=== PATIENT | male | born 1985 | race Two or more races ===

== ENCOUNTER 2021-07-31 13:37 | Emergency (ER) | payer MEDICAID ==
[~2021-07-31] VITALS: Ht 175.3 cm; Wt 72.6 kg
[2021-07-31 14:07] VITALS: BP 141/92
[2021-07-31] MEDS ORDERED: CYCLOBENZAPRINE 10 MG TABLET PO ONE (15:00)
[2021-07-31] MEDS ORDERED: IBUPROFEN 400 MG TABLET PO ONE (15:00)
[2021-07-31] MEDS ORDERED: CYCLOBENZAPRINE 10 MG TABLET ONE (15:06)
[2021-07-31] MEDS ORDERED: IBUPROFEN 400 MG TABLET ONE (15:06)
--- NOTE | 2021-07-31 15:15 | NUR ---
urine specimen collected. sent to lab
--- NOTE | 2021-07-31 15:15 | NUR ---
Genny hughes in [facility] - 07/31/21 at 1515 by NANCY nina
[2021-07-31 15:20] LABS: BILIRUBIN,URINE Negative (NEGATIVE); COLOR,URINE YELLOW (YELLOW); LEUKOCYTE ESTERASE ,URINE Trace (NEGATIVE); NITRITE, URINE Negative (NEGATIVE); PH,URINE 6.5 (5.0-8.0); PROTEIN,URINE Negative (NEGATIVE); UGLUCOSE Negative (NEGATIVE); UROBILINOGEN,URINE 0.2 EU/dL (0.2)
[2021-07-31] MEDS ORDERED: CEFTRIAXONE 500 MG VIAL IM ONE (15:30)
[2021-07-31] MEDS ORDERED: DOXYCYCLINE HYCLATE (100 MG) 100 MG TABLET PO ONE (15:30)
[2021-07-31 15:43] LABS: BACTERIA,URINE None seen /HPF (None Seen); SQUAMOUS EPITHELIAL CELL,UR Few /HPF (None Seen)
[2021-07-31] MEDS ORDERED: CEFTRIAXONE 500 MG VIAL ONE (15:45)
[2021-07-31] MEDS ORDERED: DOXYCYCLINE HYCLATE (100 MG) 100 MG TABLET ONE (15:45)
[2021-07-31] MEDS ORDERED: LIDOCAINE /MPF 1% VIAL 5 ML VIAL ONE (15:47)
[2021-07-31] MEDS ORDERED: CYCL5TAB PO (16:06)
[2021-07-31] MEDS ORDERED: DOXY100C2 PO (16:06)
== END 2021-07-31 16:27 | disposition home or self-care (01) ==
LOC: ER 13:43
DX: M54.50 Low back pain, unspecified (principal); N34.2 Other urethritis; Z79.899 Other long term (current) drug therapy
CPT/HCPCS: 81001; 87086; 87491; 87591; 96372; 99284; J0696; J3490

== ENCOUNTER 2021-08-19 13:43 | Emergency (ER) | payer MEDICAID ==
[~2021-08-19] VITALS: Ht 180.3 cm; Wt 70.8 kg
[~2021-08-19 13:43] MED LIST: CYCL5TAB PO; DOXY100C2 PO
--- NOTE | 2021-08-19 14:13 | NUR ---
BIB SELF WITH C/O COUGH, NASAL CONGESTION AND HEADACHE X 2 DAYS ALERT AND ORIENTED.KEPT COMFORTABLE IN BED. SAFETY PRECAURIONS MAINTAINED
--- NOTE | 2021-08-19 14:29 | NUR ---
COVID 19 SWAB COLLECTED AND SEND TO LAB
--- NOTE | 2021-08-19 14:29 | NUR ---
INFLUENZA SWAB COLLECTED AND SEND TO LAB
[2021-08-19] MEDS ORDERED: IBUP-1957 PO (15:30)
[2021-08-19 16:37] VITALS: BP 128/69
--- NOTE | 2021-08-19 16:46 | NUR ---
Patient discharged to home in stable condition. Written and verbal after care instructions given. Patient verbalizes understanding of instruction.
== END 2021-08-19 16:46 | disposition home or self-care (01) ==
LOC: ER 13:46
DX: J06.9 Acute upper respiratory infection, unspecified (principal); Z20.822 Contact with and (suspected) exposure to COVID-19
CPT/HCPCS: 87426; 87804; 99283; C9803